=== PATIENT | female | born 1960 | race Caucasian/White ===

== ENCOUNTER → 2016-11-30 | Outpatient (CLI) | payer MEDICARE, BC ==
--- NOTE | 2016-11-30 11:41 | REPMRS ---
Patient History The patient states she has not had a clinical breast exam in over a year. Patient is postmenopausal. Family history of prostate cancer in father at age 50 or over and breast cancer in maternal aunt. Digital Woman Screen Mammo: November 30, 2016 - Exam #: [id number] Bilateral CC and MLO view(s) were taken. Technologist: Sandi Kim, Technologist Prior study comparison: April 17, 2013, digital woman screen mammo performed at [facility] to [facility]. December 12, 2004, bilateral screening mammogram performed at [facility]. FINDINGS: There are scattered fibroglandular densities. There has been no change in the appearance of the mammogram from the prior studies. There is a mild amount of residual fibroglandular tissue which is fairly symmetric. There is no interval development of dominant mass, architectural distortion, or clustered microcalcification suggestive of malignancy. ASSESSMENT: BI-RADS/ACR category 1 mammogram. Negative. Recommendation Routine screening mammogram in 1 year (for women over age 40). This mammogram was interpreted with the aid of an FDA-approved computer-aided dectection system. Electronically Signed By: Michael Bauman MD 11/30/16 2728
== END ==
LOC: M WHC 08:10
PROVIDERS: ATTEND Family Medicine
DX: Z12.31 Encounter for screening mammogram for malignant neoplasm of breast (principal)

== ENCOUNTER → 2016-12-27 | Outpatient (REF) | payer MEDICARE, OTHER | LOC: M SFHCWAGY 13:53 | PROVIDERS: ATTEND Nurse Practitioner Family | DX: Z12.72 Encounter for screening for malignant neoplasm of vagina (principal); N95.2 Postmenopausal atrophic vaginitis; Z12.12 Encounter for screening for malignant neoplasm of rectum | CPT/HCPCS: 82270; G0101; G0123 ==

== ENCOUNTER → 2017-12-03 | Outpatient (REF) | payer MEDICARE, OTHER ==
[2017-12-03 16:42] LABS: RHEUMATOID FACTOR QUANT < 10.0 IU/ML (<15.0)
[2017-12-03 16:42] LABS: C REACTIVE PROTEIN QUANTITATIV < 0.30 MG/DL (0.00-0.30)
[2017-12-03 17:14] LABS: BASO % 0.5 % (0.0-1.0); EOS # 0.1 10^3/uL (0.0-0.50); EOS % 1.1 % (0.0-3.0); HEMATOCRIT 42.8 % (36.0-47.0); HEMOGLOBIN 14.2 g/dl (12.0-15.5); IMMATURE GRANULOCYTE % 0.4 % (0-3.0); LYMPH # 2.4 10^3/uL (1.5-4.5); LYMPH % 31.5 % (24.0-44.0); MEAN CORPUSCULAR HEMOGLOBIN 29.7 pg (27.0-33.0); MEAN CORPUSCULAR HGB CONC 33.2 g/dl (32.0-36.5); MEAN CORPUSCULAR VOLUME 89.5 fl (80.0-96.0); MONO # 0.6 10^3/uL (0.0-0.8); MONO % 7.8 % (0.0-5.0); NEUTROPHILS # 4.4 10^3/uL (1.8-7.7); NEUTROPHILS % 58.7 % (36.0-66.0); PLATELET COUNT, AUTOMATED 338 10^3/uL (150-450); RED BLOOD COUNT 4.78 10^6/uL (4.00-5.40); RED CELL DISTRIBUTION WIDTH 12.9 % (11.5-14.5); WHITE BLOOD COUNT 7.5 10^3/uL (4.0-10.0)
[2017-12-03 17:49] LABS: ERYTHROCYTE SEDIMENTATION RATE 5 mm/hr (0-30)
[2017-12-06 00:07] LABS: ANTINUCLEAR ANTIBODIES DIRECT Negative (Negative); Lyme Disease IgG/IgM Antibodie <0.91 ISR (0.00-0.90); Lyme Disease IgM Ab Quantitati <0.80 index (0.00-0.79)
== END ==
LOC: M LABDRAW1 16:19
DX: M25.561 Pain in right knee (principal)
CPT/HCPCS: 86140

== ENCOUNTER → 2018-02-06 | Outpatient (CLI) | payer MEDICARE, BC, OTHER ==
[2018-02-06 13:21] LABS: ANION GAP 7 MEQ/L (8-16); BLOOD UREA NITROGEN 22 MG/DL (7-18); CALCIUM LEVEL 10.1 MG/DL (8.5-10.1); CARBON DIOXIDE LEVEL 32 MEQ/L (21-32); CHLORIDE LEVEL 103 MEQ/L (98-107); CREATININE FOR GFR 1.16 MG/DL (0.55-1.30); GLOMERULAR FILTRATION RATE 51.3 (>51); GLUCOSE, FASTING 110 MG/DL (70-100); POTASSIUM SERUM 4.4 MEQ/L (3.5-5.1); SODIUM LEVEL 142 MEQ/L (136-145)
== END ==
LOC: M LAB 11:15
DX: M17.11 Unilateral primary osteoarthritis, right knee (principal)
CPT/HCPCS: 93005

== ENCOUNTER → 2018-12-08 | Outpatient (CLI) | payer MEDICARE, BC, OTHER ==
--- NOTE | 2018-12-08 11:44 | REPMRS ---
Patient History The patient states she had a clinical breast exam in 10/2018. Family history of breast cancer in maternal aunt, prostate cancer at age 50 or over in father. Digital Woman Screen Mammo: December 08, 2018 - Exam #: [id number] Bilateral CC and MLO view(s) were taken. Technologist: Sandi Kim, Technologist Prior study comparison: November 30, 2016, digital woman screen mammo performed at [facility]. April 17, 2013, digital woman screen mammo performed at [facility]. December 12, 2004, bilateral screening mammogram performed at [facility]. FINDINGS: The breast tissue is almost entirely fat. There has been no change in the appearance of the mammogram from the prior studies. There is no interval development of dominant mass, architectural distortion, or clustered microcalcification typical of malignancy. 3-D tomosynthesis shows no additional findings. Assessment: BI-RADS/ACR category 1 mammogram. Negative Mammogram. Recommendation Routine screening mammogram of both breasts in 1 year (for women over age 40). This patient's Lifetime Breast Cancer RIsk is estimated at 6.1 %. This mammogram was interpreted with the aid of an FDA-approved computer-aided dectection system. Electronically Signed By: Jame Hamm MD 12/08/18 [id number]
== END ==
LOC: M WHC 09:52
PROVIDERS: ATTEND Obstetrics & Gynecology
DX: Z12.31 Encounter for screening mammogram for malignant neoplasm of breast (principal); Z80.3 Family history of malignant neoplasm of breast

== ENCOUNTER → 2019-04-07 | Outpatient (CLI) | payer MEDICARE, BC, OTHER ==
--- NOTE | 2019-04-07 10:21 | REP ---
STANDING AP BILATERAL KNEES: Standing AP view of bilateral knees performed. No fracture or dislocation is seen. No significant arthritic changes are seen bilaterally. Joint spaces appear well preserved. IMPRESSION: Negative exam. Electronically Signed by Michael Bauman MD 04/07/2019 10:32 A
== END ==
LOC: M RAD 09:26
PROVIDERS: ATTEND Internal Medicine Rheumatology
DX: M17.0 Bilateral primary osteoarthritis of knee (principal)
CPT/HCPCS: 73565; G0463

== ENCOUNTER → 2019-09-10 | Outpatient (REF) | payer MEDICARE, OTHER | LOC: M LAB REF 10:22 | PROVIDERS: ATTEND Internal Medicine Gastroenterology | DX: R19.7 Diarrhea, unspecified (principal) ==

== ENCOUNTER → 2019-09-11 | Outpatient (CLI) | payer MEDICARE, BC, OTHER ==
[~2019-09-11] MED LIST: ASPI81TA26 PO; ATOR1TAB19 PO; BUSP30TA PO; CHLO50TA PO; ESCI10TA2 PO; METO1TAB33 PO; ROPI1TAB3 PO
[2019-09-11 10:30] LABS: CALCIUM LEVEL 9.2 MG/DL (8.5-10.1); CHOLESTEROL RISK RATIO 2.836 (<5); CREATININE FOR GFR 1.15 MG/DL (0.55-1.30); GLOMERULAR FILTRATION RATE 51.4 (>51); POTASSIUM SERUM 3.7 MEQ/L (3.5-5.1)
== END ==
LOC: M LAB 09:21
PROVIDERS: ATTEND Obstetrics & Gynecology
DX: E78.5 Hyperlipidemia, unspecified (principal); I10 Essential (primary) hypertension

== ENCOUNTER → 2019-10-27 | Outpatient (CLI) | payer MEDICARE, BC, OTHER ==
[~2019-10-27] MED LIST changes: +LIDOCAINE 2% 100MG/5ML SDV (FOR ANES.) As Ordered ONE; +ePHEDrine SULFATE 25 MG/5 ML(5MG/ML) SYRINGE As Ordered ONE; +propofoL 200 MG/20 ML VIAL As Ordered ONE
== END ==
LOC: M LABSMTC 11:48
PROVIDERS: ATTEND Anesthesiology
DX: Z01.818 Encounter for other preprocedural examination (principal); Z11.59 Encounter for screening for other viral diseases; Z20.828 Contact with and (suspected) exposure to other viral communicable diseases

== ENCOUNTER 2019-10-28 12:46 | Day surgery (SDC) | payer MEDICARE, BC, OTHER ==
[~2019-10-28] VITALS: Ht 165.1 cm; Wt 92.1 kg
[~2019-10-28 12:46] MED LIST changes: -LIDOCAINE 2% 100MG/5ML SDV (FOR ANES.) As Ordered ONE; +NS 1,000 ML IV ONE; -ePHEDrine SULFATE 25 MG/5 ML(5MG/ML) SYRINGE As Ordered ONE; -propofoL 200 MG/20 ML VIAL As Ordered ONE
[2019-10-28] MEDS ORDERED: propofoL 200 MG/20 ML VIAL ONE (14:22)
[2019-10-28] MEDS ORDERED: LIDOCAINE 2% 100MG/5ML SDV (FOR ANES.) ONE (14:22)
[2019-10-28] MEDS ORDERED: ePHEDrine SULFATE 25 MG/5 ML(5MG/ML) SYRINGE ONE (14:22)
--- NOTE | 2019-10-28 14:45 | ROOR ---
Patient Name: Nava Gill Procedure Date: 10/28/2019 2:10 PM Date of : 1960 Age: 59 Room: [facility] Gender: Female Note Status: Finalized Procedure: Total Colonoscopy to Cecum + Cold Snare Polypectomy + Hemoclips + Biopsies Indications: Change in bowel habits Providers: Steve Catherine MD Referring MD: Maria Eugenia Ramsay Do Requesting Provider: Medicines: Monitored Anesthesia Care Complications: No immediate complications. Procedure: Pre-Anesthesia Assessment: - The heart rate, respiratory rate, oxygen saturations, blood pressure, adequacy of pulmonary ventilation, and response to care were monitored throughout the procedure. The Colonoscope was introduced through the anus and advanced to the cecum, identified by appendiceal orifice and ileocecal valve. The colonoscopy was performed without difficulty. The patient tolerated the procedure well. The quality of the bowel preparation was excellent. Findings: The perianal and digital rectal examinations were normal. Non-bleeding internal hemorrhoids were found during retroflexion. The hemorrhoids were small and Grade I (internal hemorrhoids that do not prolapse). Two sessile polyps were found in the entire colon. The polyps were medium in size. These polyps were removed with a cold snare. Resection and retrieval were complete. To prevent bleeding after the polypectomy, one hemostatic clip was successfully placed (MR conditional). There was no bleeding at the end of the procedure. Biopsies for histology were taken with a cold forceps from the ascending colon, transverse colon and descending colon for evaluation of microscopic colitis. The exam was otherwise without abnormality on direct and retroflexion views. Impression: - Non-bleeding internal hemorrhoids. - Two medium polyps in the entire colon, removed with a cold snare. Resected and retrieved. Clip (MR conditional) was placed. - The examination was otherwise normal on direct and retroflexion views. - Biopsies were taken with a cold forceps from the ascending colon, transverse colon and descending colon for evaluation of microscopic colitis. - The exam was otherwise normal to the cecum. Recommendation: - Patient has a contact number available for emergencies. The signs and symptoms of potential delayed complications were discussed with the patient. Return to normal activities tomorrow. Written discharge instructions were provided to the patient. - High fiber diet. - Discharge patient to home. - Continue present medications. - Await pathology results. - Telephone GI clinic for pathology results in 1 week. - Repeat colonoscopy for surveillance based on pathology results. - Return to referring physician. - The findings and recommendations were discussed with the patient's family. Steve Catherine MD Steve Catherine MD 10/28/2019 2:45:18 PM Electronically signed by Steve Catherine MD Number of Addenda: 0 Note Initiated On: 10/28/2019 2:10 PM Estimated Blood Loss: Estimated blood loss: none.
[2019-10-28 15:15] VITALS: BP 158/75
== END 2019-10-28 15:18 | disposition home or self-care (01) ==
LOC: M OPP 12:46
PROVIDERS: ATTEND Internal Medicine Gastroenterology
DX: K64.0 First degree hemorrhoids (principal); K63.5 Polyp of colon; R19.4 Change in bowel habit; I10 Essential (primary) hypertension; Z79.82 Long term (current) use of aspirin; Z79.899 Other long term (current) drug therapy

== ENCOUNTER → 2019-11-16 | Outpatient (CLI) | payer MEDICARE, BC, OTHER ==
[~2019-11-16] MED LIST changes: -NS 1,000 ML IV ONE
--- NOTE | 2019-11-16 16:51 | REP ---
BILATERAL SHOULDERS: Three views of bilateral shoulders performed. No acute fracture or dislocation is seen. There is mild joint space narrowing, subchondral sclerosis, and spurring at the left glenohumeral joint. There is mild to moderate narrowing at the left acromioclavicular joint. There is mild spurring of the right glenoid. There is moderate narrowing of the right acromioclavicular joint. There are no other significant findings. IMPRESSION: Bilateral arthritic changes, as discussed above. Electronically Signed by Michael Bauman MD 11/16/2019 07:35 P
== END ==
LOC: M RAD 14:31
PROVIDERS: ATTEND Obstetrics & Gynecology
DX: M19.011 Primary osteoarthritis, right shoulder (principal); M19.012 Primary osteoarthritis, left shoulder

== ENCOUNTER → 2020-02-19 | Outpatient (CLI) | payer MEDICARE, BC ==
--- NOTE | 2020-02-20 15:02 | REPMRS ---
Patient History The patient states she has not had a clinical breast exam in over a year. Family history of breast cancer in maternal aunt, prostate cancer at age 50 or over in father. Digital Woman Screen Mammo: February 19, 2020 - Exam #: [id number] Bilateral CC and MLO view(s) were taken. Technologist: Valery Navas, Technologist Prior study comparison: December 08, 2018, bilateral digital woman screen mammo performed at [facility]. November 30, 2016, digital woman screen mammo performed at [facility]. April 17, 2013, digital woman screen mammo performed at [facility]. FINDINGS: The breast tissue is almost entirely fat. The Volpara volumetric breast density category is: A. There has been no change in the appearance of the mammogram from the prior studies. There is no interval development of dominant mass, architectural distortion, or grouped microcalcification typical of malignancy. 3-D tomosynthesis shows no additional findings. Assessment: BI-RADS/ACR category 1 mammogram. Negative Mammogram. Recommendation Routine screening mammogram of both breasts in 1 year (for women over age 40). This patient's Lifetime Breast Cancer RIsk is estimated at 5.9 %. This mammogram was interpreted with the aid of an FDA-approved computer-aided dectection system. Electronically Signed By: Jame Hamm MD 02/20/20 [id number]
== END ==
LOC: M WHC 14:20
PROVIDERS: ATTEND Family Medicine
DX: Z12.31 Encounter for screening mammogram for malignant neoplasm of breast (principal)

== ENCOUNTER → 2020-05-25 | Outpatient (REF) | payer MEDICARE, OTHER ==
[2020-05-25 14:16] LABS: CALCIUM LEVEL 10.1 MG/DL (8.8-10.2); CHOLESTEROL RISK RATIO 3.265 (<5); CREATININE FOR GFR 1.3 MG/DL (0.55-1.30); GLOMERULAR FILTRATION RATE 44.5 (>45); POTASSIUM SERUM 3.7 MEQ/L (3.5-5.1)
== END ==
LOC: M SFHCPLAZ 10:28
PROVIDERS: ATTEND Family Medicine
DX: E78.5 Hyperlipidemia, unspecified (principal); I10 Essential (primary) hypertension
CPT/HCPCS: 36415; 80048; 80061; G0463

== ENCOUNTER → 2020-05-30 | Outpatient (REF) | payer MEDICARE, OTHER ==
[2020-05-30 14:08] LABS: CALCIUM LEVEL 9.4 MG/DL (8.8-10.2); CHOLESTEROL RISK RATIO 3.212 (<5); CREATININE FOR GFR 1.29 MG/DL (0.55-1.30); GLOMERULAR FILTRATION RATE 44.9 (>45); POTASSIUM SERUM 3.3 MEQ/L (3.5-5.1)
[2020-05-30 14:30] LABS: APPEARANCE, URINE CLOUDY (CLEAR); BACTERIA, URINE AUTO 1+ (NEGATIVE); BILIRUBIN, URINE AUTO NEGATIVE (NEGATIVE); BLOOD, URINE BLOOD NEGATIVE (NEGATIVE); COLOR, URINE YELLOW (YELLOW); GLUCOSE, URINE (UA) AUTO NEGATIVE (NEGATIVE); KETONE, URINE AUTO NEGATIVE (NEGATIVE); LEUKOCYTE ESTERASE, URINE AUTO 2+ (NEGATIVE); MUCUS, URINE SMALL (NEGATIVE); NITRITE, URINE AUTO NEGATIVE (NEGATIVE); PROTEIN, URINE AUTO 1+ mg/dL (NEGATIVE); RBC, URINE AUTO 3 /HPF (0-3); SPECIFIC GRAVITY URINE AUTO 1.028 (1.002-1.035); SQUAMOUS EPITHELIAL CELL UR AU 18 /HPF (0-6); UROBILINOGEN, URINE AUTO 0.2 mg/dL (0.0-2.0); WBC, URINE AUTO 23 /HPF (0-3)
== END ==
LOC: M SFHCPLAZ 09:39
PROVIDERS: ATTEND Family Medicine
DX: E78.5 Hyperlipidemia, unspecified (principal); I10 Essential (primary) hypertension; R89.9 Unspecified abnormal finding in specimens from other organs, systems and tissues

== ENCOUNTER → 2020-06-14 | Outpatient (CLI) | payer MEDICARE, OTHER ==
[2020-06-14 14:13] LABS: CREATININE FOR GFR 1.18 MG/DL (0.55-1.30); GLOMERULAR FILTRATION RATE 49.7 (>45); POTASSIUM SERUM 3.4 MEQ/L (3.5-5.1)
== END ==
LOC: M PLALAB 09:10
PROVIDERS: ATTEND Student in an Organized Health Care Education/Training Program
DX: R89.9 Unspecified abnormal finding in specimens from other organs, systems and tissues (principal)

== ENCOUNTER → 2020-07-05 | Outpatient (REF) | payer MEDICARE, OTHER ==
[2020-07-05 13:56] LABS: CALCIUM LEVEL 9.9 MG/DL (8.8-10.2); CREATININE FOR GFR 1.18 MG/DL (0.55-1.30); GLOMERULAR FILTRATION RATE 49.7 (>45); POTASSIUM SERUM 4.4 MEQ/L (3.5-5.1)
== END ==
LOC: M PLALAB 10:15
PROVIDERS: ATTEND Student in an Organized Health Care Education/Training Program
DX: I10 Essential (primary) hypertension (principal)

== ENCOUNTER → 2020-11-21 | Outpatient (REF) | payer MEDICARE, OTHER ==
[~2020-11-21] MED LIST changes: +ESCI10TA16 PO; -ESCI10TA2 PO
== END ==
LOC: M SFHCPLAZ 15:14
PROVIDERS: ATTEND Family Medicine
DX: E78.5 Hyperlipidemia, unspecified (principal); I10 Essential (primary) hypertension

== ENCOUNTER → 2020-12-05 | Outpatient (REF) | payer MEDICARE, OTHER ==
[2020-12-05 14:18] LABS: ALBUMIN 4.2 GM/DL (3.2-5.2); BILIRUBIN,TOTAL 0.6 MG/DL (0.2-1.0); CALCIUM LEVEL 10.1 MG/DL (8.8-10.2); CHOLESTEROL RISK RATIO 3.093 (<5); CREATININE FOR GFR 1.3 MG/DL (0.55-1.30); GLOMERULAR FILTRATION RATE 44.5 (>45); POTASSIUM SERUM 4.5 MEQ/L (3.5-5.1)
== END ==
LOC: M SFHCPLAZ 10:10
PROVIDERS: ATTEND Family Medicine
DX: I10 Essential (primary) hypertension (principal); E78.5 Hyperlipidemia, unspecified

== ENCOUNTER → 2020-12-29 | Outpatient (REF) | payer MEDICARE, OTHER | LOC: M LAB REF 13:23 | PROVIDERS: ATTEND Student in an Organized Health Care Education/Training Program | DX: D36.17 Benign neoplasm of peripheral nerves and autonomic nervous system of trunk, unspecified (principal) | CPT/HCPCS: 88305; G0463 ==

== ENCOUNTER → 2021-02-09 | Outpatient (CLI) | payer MEDICARE, BC, OTHER ==
--- NOTE | 2021-02-09 10:24 | REP ---
INDICATION: RENOVASCULAR HTN, CKD STAGE 3A/B. COMPARISON: None. TECHNIQUE: Real-time sonographic evaluation of the kidneys with real-time arterial Doppler due to renovascular disease FINDINGS: Multiple ultrasonographic images of the right kidney show the right kidney to measure 10.4 x 5.4 x 3.9 cm. The renal cortical echotexture is unremarkable. There are no masses. There is good corticomedullary differentiation. There is no hydronephrosis. There are no perinephric fluid collections. Multiple ultrasonographic images of the left kidney show the left kidney to measure 10.9 x 5.4 x 4.6 cm. The renal cortical echotexture is unremarkable. There are no masses. There is good corticomedullary differentiation. There is no hydronephrosis. There are no perinephric fluid collections. Incidental note is made of the 1.2 x 0.9 x 1 cm sized anechoic structure in the superior pole region which exhibits posterior wall enhancement and increased through transmission consistent with a simple cyst. On the right: The peak renal artery velocity is 178 centimeters/second. The peak aortic velocity is 122 centimeters/second. The renal aortic ratio is 1.46. The resistive index in the upper pole is 0.69, midpole 0.72, and lower pole 0.68. The acceleration time in the upper pole is 0.042, midpole 0.03, lower pole 0.028. On the left: The peak renal artery velocity is 119 centimeters/second. Peak aortic velocity is 122 centimeters/second. The renal aortic ratio is 0.98. The resistive index is 0.69 in the upper pole, 0.74 in the midpole, and 0.64 in the lower pole. The acceleration time in the upper pole is 0.036, in the midpole is 0.040, and in the lower pole 0.036. IMPRESSION: 1. Real-time sonographic evaluation of the kidneys shows them to be within normal limits. There is a simple cyst in the left kidney as described above. 2. There is no evidence of renal arterial stenosis. Findings as described above. Consider complete evaluation with renal arterial MRA. <Electronically signed by Juan Davis > 02/09/21 [id number]
== END ==
LOC: M RAD 08:06
PROVIDERS: ATTEND Internal Medicine Nephrology
DX: I15.0 Renovascular hypertension (principal); N18.31 Chronic kidney disease, stage 3a; N28.1 Cyst of kidney, acquired

== ENCOUNTER → 2021-08-01 | Outpatient (REF) | payer MEDICARE, OTHER | LOC: M SFHCPLAZ 14:19 | PROVIDERS: ATTEND Family Medicine | DX: E78.5 Hyperlipidemia, unspecified (principal); I10 Essential (primary) hypertension; E66.9 Obesity, unspecified ==

== ENCOUNTER → 2021-08-02 | Outpatient (CLI) | payer MEDICARE, BC, OTHER ==
[2021-08-02 11:47] LABS: CALCIUM LEVEL 9.4 MG/DL (8.8-10.2); CHOLESTEROL RISK RATIO 2.976 (<5); CREATININE FOR GFR 1.14 MG/DL (0.55-1.30); GLOMERULAR FILTRATION RATE 51.6 (>45); POTASSIUM SERUM 4.7 MEQ/L (3.5-5.1)
[2021-08-02 11:48] LABS: HEMOGLOBIN A1c 6.3 %
== END ==
LOC: M PLALAB 09:07
PROVIDERS: ATTEND Student in an Organized Health Care Education/Training Program
DX: I10 Essential (primary) hypertension (principal); E78.5 Hyperlipidemia, unspecified; E66.9 Obesity, unspecified; Z79.899 Other long term (current) drug therapy

== ENCOUNTER → 2021-11-03 | Outpatient (REF) | payer MEDICARE, OTHER | LOC: M SFHCPLAZ 14:45 | PROVIDERS: ATTEND Family Medicine | DX: Z53.21 Procedure and treatment not carried out due to patient leaving prior to being seen by health care provider (principal) ==

== ENCOUNTER → 2021-11-13 | Outpatient (CLI) | payer MEDICARE, OTHER ==
[2021-11-13 14:20] LABS: CALCIUM LEVEL 10.5 MG/DL (8.8-10.2); CREATININE FOR GFR 1.19 MG/DL (0.55-1.30); GLOMERULAR FILTRATION RATE 49.1 (>45)
== END ==
LOC: M PLALAB 09:52
PROVIDERS: ATTEND Student in an Organized Health Care Education/Training Program
DX: I10 Essential (primary) hypertension (principal)

== ENCOUNTER → 2022-02-20 | Outpatient (CLI) | payer MEDICARE, BC, OTHER | LOC: M WHC 09:26 | PROVIDERS: ATTEND Student in an Organized Health Care Education/Training Program | DX: Z12.31 Encounter for screening mammogram for malignant neoplasm of breast (principal) ==

== ENCOUNTER → 2022-09-03 | Outpatient (REF) | payer MEDICARE, OTHER | LOC: M SFHCPLAZ 13:50 | PROVIDERS: ATTEND Family Medicine | DX: G25.81 Restless legs syndrome (principal); I10 Essential (primary) hypertension; R73.03 Prediabetes ==

== ENCOUNTER → 2022-09-06 | Outpatient (CLI) | payer MEDICARE, BC, OTHER ==
[2022-09-06 10:53] LABS: BASO % 0.4 % (0.0-1.0); EOS # 0.2 10^3/uL (0.0-0.5); EOS % 2.1 % (0.0-3.0); HEMATOCRIT 47.7 % (36.0-47.0); HEMOGLOBIN 14.7 g/dl (12.0-15.5); LYMPH # 1.8 10^3/uL (1.5-5.0); LYMPH % 20.1 % (24.0-44.0); MEAN CORPUSCULAR HEMOGLOBIN 28.5 pg (27.0-33.0); MEAN CORPUSCULAR HGB CONC 30.8 g/dl (32.0-36.5); MEAN CORPUSCULAR VOLUME 92.4 fl (80.0-96.0); MONO # 0.6 10^3/uL (0.0-0.8); MONO % 6.6 % (2.0-8.0); NEUTROPHILS # 6.4 10^3/uL (1.5-8.5); NEUTROPHILS % 70.5 % (36.0-66.0); PLATELET COUNT, AUTOMATED 317 10^3/uL (150-450); RED BLOOD COUNT 5.16 10^6/uL (4.00-5.40); WHITE BLOOD COUNT 9.1 10^3/uL (4.0-10.0)
[2022-09-06 11:11] LABS: TOTAL IRON BINDING CAPACITY 347 UG/DL (250-425)
[2022-09-06 11:12] LABS: ALKALINE PHOSPHATASE 71 U/L (46-116); ALT/SGPT 41 U/L (7.0-40); AST/SGOT 28 U/L (<34); BILIRUBIN,TOTAL 0.9 MG/DL (0.3-1.2); BLOOD UREA NITROGEN 18 MG/DL (9-23); CALCIUM LEVEL 9.8 MG/DL (8.3-10.6); CARBON DIOXIDE LEVEL 31 MMOL/L (20-31); CHLORIDE LEVEL 108 MMOL/L (98-107); CHOLESTEROL LEVEL 147 MG/DL (<200); CHOLESTEROL RISK RATIO 3.12 (<5); CREATININE FOR GFR 0.96 MG/DL (0.55-1.30); GLOMERULAR FILTRATION RATE > 60.0 (>45); GLUCOSE, FASTING 88 MG/DL (74-106); IRON (FE) 81 UG/DL (50-170); LDL CHOLESTEROL 51.6 MG/DL (<100); PERCENT SATURATION 23.3 % (13.2-45.0); POTASSIUM SERUM 5.1 MMOL/L (3.5-5.1); SODIUM LEVEL 144 MMOL/L (136-145); TOTAL PROTEIN 6.8 G/DL (5.7-8.2); TRIGLYCERIDES LEVEL 242 MG/DL (<150)
[2022-09-06 11:14] LABS: FERRITIN 94.3 NG/ML (7.3-270.7)
== END ==
LOC: M PLALAB 08:51
PROVIDERS: ATTEND Student in an Organized Health Care Education/Training Program
DX: G25.81 Restless legs syndrome (principal); R73.03 Prediabetes; I10 Essential (primary) hypertension

== ENCOUNTER → 2022-11-07 | Outpatient (CLI) | payer MEDICARE, BC, OTHER ==
[2022-11-07 10:51] LABS: BLOOD UREA NITROGEN 20 MG/DL (9-23); CALCIUM LEVEL 9.7 MG/DL (8.3-10.6); CARBON DIOXIDE LEVEL 31 MMOL/L (20-31); CHLORIDE LEVEL 106 MMOL/L (98-107); CREATININE FOR GFR 0.99 MG/DL (0.55-1.30); GLOMERULAR FILTRATION RATE > 60.0 (>45); GLUCOSE, FASTING 97 MG/DL (74-106); IRON (FE) 46 UG/DL (50-170); POTASSIUM SERUM 4.5 MMOL/L (3.5-5.1); SODIUM LEVEL 144 MMOL/L (136-145)
== END ==
LOC: M PLALAB 08:15
PROVIDERS: ATTEND Student in an Organized Health Care Education/Training Program
DX: G25.81 Restless legs syndrome (principal); I10 Essential (primary) hypertension

== ENCOUNTER → 2022-11-12 | Outpatient (CLI) | payer MEDICARE, BC, OTHER ==
[2022-11-12 11:38] LABS: PERCENT SATURATION 11.2 % (13.2-45.0)
[2022-11-12 11:41] LABS: FERRITIN 72.2 NG/ML (7.3-270.7)
== END ==
LOC: M PLALAB 07:50
PROVIDERS: ATTEND Student in an Organized Health Care Education/Training Program
DX: E61.1 Iron deficiency (principal)

== ENCOUNTER → 2022-11-15 | Outpatient (CLI) | payer MEDICARE, BC, OTHER | LOC: M PLARAD 12:24 | PROVIDERS: ATTEND Student in an Organized Health Care Education/Training Program | DX: S84.12XD Injury of peroneal nerve at lower leg level, left leg, subsequent encounter (principal); M99.73 Connective tissue and disc stenosis of intervertebral foramina of lumbar region ==

== ENCOUNTER → 2022-12-24 | Outpatient (CLI) | payer MEDICARE, BC, OTHER ==
[2022-12-24 10:29] LABS: THYROID STIMULATING HORMONE 1.669 uIU/ML (0.55-4.78)
[2022-12-24 10:30] LABS: FREE T4 0.82 NG/DL (0.89-1.76)
== END ==
LOC: M LAB 08:35
PROVIDERS: ATTEND Student in an Organized Health Care Education/Training Program
DX: R00.0 Tachycardia, unspecified (principal)

== ENCOUNTER → 2023-01-02 | Outpatient (CLI) | payer MEDICARE, BC, OTHER | LOC: M RAD 10:59 | PROVIDERS: ATTEND Student in an Organized Health Care Education/Training Program | DX: R22.9 Localized swelling, mass and lump, unspecified (principal) ==

== ENCOUNTER → 2023-02-06 | Outpatient (CLI) | payer MEDICARE, BC, OTHER ==
[~2023-02-06] MED LIST changes: -ROPI1TAB3 PO; +ROPI1TAB73 PO
[2023-02-06 13:59] LABS: BLOOD UREA NITROGEN 18 MG/DL (9-23); CARBON DIOXIDE LEVEL 31 MMOL/L (20-31); CHLORIDE LEVEL 104 MMOL/L (98-107); CREATININE FOR GFR 0.86 MG/DL (0.55-1.30); GLOMERULAR FILTRATION RATE > 60.0 (>45); GLUCOSE, FASTING 98 MG/DL (74-106); POTASSIUM SERUM 4.4 MMOL/L (3.5-5.1); SODIUM LEVEL 143 MMOL/L (136-145)
== END ==
LOC: M PLALAB 09:50
PROVIDERS: ATTEND Student in an Organized Health Care Education/Training Program
DX: I10 Essential (primary) hypertension (principal)

== ENCOUNTER → 2023-02-13 | Outpatient (CLI) | payer MEDICARE, BC, OTHER | LOC: M RAD 12:24 | PROVIDERS: ATTEND Student in an Organized Health Care Education/Training Program | DX: I10 Essential (primary) hypertension (principal) ==

== ENCOUNTER → 2023-04-11 | Outpatient (CLI) | payer MEDICARE, BC, OTHER | LOC: M SLEEP 20:00 | PROVIDERS: ATTEND Nurse Practitioner Family | DX: G47.33 Obstructive sleep apnea (adult) (pediatric) (principal) ==

== ENCOUNTER → 2024-03-06 | Outpatient (REF) | payer MEDICARE, BC | LOC: M SFHCPLAZ 18:51 | PROVIDERS: ATTEND Family Medicine | DX: Z00.00 Encounter for general adult medical examination without abnormal findings (principal) ==

== ENCOUNTER → 2024-03-17 | Outpatient (CLI) | payer MEDICARE, BC ==
[2024-03-17 10:12] LABS: THYROID STIMULATING HORMONE 2.124 uIU/ML (0.55-4.78)
[2024-03-17 10:13] LABS: ALBUMIN 4.3 G/DL (3.2-5.2); BASO % 0.3 % (0.0-1.0); BILIRUBIN,TOTAL 1.1 MG/DL (0.3-1.2); CALCIUM LEVEL 10.6 MG/DL (8.3-10.6); EOS # 0.2 10^3/uL (0.0-0.5); EOS % 1.9 % (0.0-3.0); GLOMERULAR FILTRATION RATE 59.6 (>45); HEMATOCRIT 46.3 % (36.0-47.0); HEMOGLOBIN 15.1 g/dl (12.0-15.5); LYMPH % 21.4 % (24.0-44.0); MEAN CORPUSCULAR HEMOGLOBIN 30.5 pg (27.0-33.0); MEAN CORPUSCULAR HGB CONC 32.6 g/dl (32.0-36.5); MEAN CORPUSCULAR VOLUME 93.5 fl (80.0-96.0); MONO # 0.7 10^3/uL (0.0-0.8); MONO % 7.7 % (2.0-8.0); NEUTROPHILS # 6.2 10^3/uL (1.5-8.5); NEUTROPHILS % 68.5 % (36.0-66.0); PLATELET COUNT, AUTOMATED 316 10^3/uL (150-450); POTASSIUM SERUM 4.4 MMOL/L (3.5-5.1); RED BLOOD COUNT 4.95 10^6/uL (4.00-5.40); TOTAL PROTEIN 7.2 G/DL (5.7-8.2); WHITE BLOOD COUNT 9.1 10^3/uL (4.0-10.0)
== END ==
LOC: M PLALAB 08:09
PROVIDERS: ATTEND Student in an Organized Health Care Education/Training Program
DX: Z00.00 Encounter for general adult medical examination without abnormal findings (principal); Z79.899 Other long term (current) drug therapy

== ENCOUNTER → 2024-04-09 | Outpatient (CLI) | payer MEDICARE, BC | LOC: M WHC 13:21 | PROVIDERS: ATTEND Student in an Organized Health Care Education/Training Program | DX: Z12.31 Encounter for screening mammogram for malignant neoplasm of breast (principal) ==

== ENCOUNTER 2024-06-03 11:48 | Day surgery (SDC) | payer MEDICARE, BC ==
[~2024-06-03] VITALS: Ht 165.1 cm; Wt 104.3 kg
[~2024-06-03 11:48] MED LIST changes: +AMLO1TAB24 PO; +IRON65TA2 PO; +LEXA1TAB PO; +LOSA100T46 PO; +OMEG10002 PO; +THERTAB52 PO; +VITA100093 PO
[2024-06-03] MEDS ORDERED: propofoL 200 MG/20 ML VIAL As Ordered ONE (12:23)
[2024-06-03] MEDS ORDERED: LIDOCAINE 2% 100MG/5ML SDV (FOR ANES.) As Ordered ONE (12:23)
[2024-06-03 13:24] VITALS: TEMP 98.9
[2024-06-03 13:45] VITALS: BP 158/80; O2SAT 94
== END 2024-06-03 13:54 | disposition home or self-care (01) ==
LOC: M OPP 11:48
PROVIDERS: ATTEND Internal Medicine Gastroenterology
DX: Z12.11 Encounter for screening for malignant neoplasm of colon (principal); K63.5 Polyp of colon; K57.30 Diverticulosis of large intestine without perforation or abscess without bleeding; K64.0 First degree hemorrhoids; Z86.0100 Personal history of colon polyps, unspecified; Z87.19 Personal history of other diseases of the digestive system; I10 Essential (primary) hypertension; E78.00 Pure hypercholesterolemia, unspecified; Z79.899 Other long term (current) drug therapy; Z79.82 Long term (current) use of aspirin; Z90.710 Acquired absence of both cervix and uterus

== ENCOUNTER 2024-07-09 13:28 | Observation (INO) | payer MEDICARE, BC ==
[~2024-07-09] VITALS: Ht 165.1 cm; Wt 100.2 kg
[2024-07-09 15:10] LABS: BASO % 0.2 % (0.0-1.0); EOS # 0.1 10^3/uL (0.0-0.5); EOS % 0.3 % (0.0-3.0); HEMATOCRIT 46.3 % (36.0-47.0); HEMOGLOBIN 15.2 g/dl (12.0-15.5); LYMPH # 0.8 10^3/uL (1.5-5.0); LYMPH % 4.2 % (24.0-44.0); MEAN CORPUSCULAR HEMOGLOBIN 29.9 pg (27.0-33.0); MEAN CORPUSCULAR HGB CONC 32.8 g/dl (32.0-36.5); MONO # 0.7 10^3/uL (0.0-0.8); NEUTROPHILS # 16.6 10^3/uL (1.5-8.5); NEUTROPHILS % 90.9 % (36.0-66.0); PLATELET COUNT, AUTOMATED 264 10^3/uL (150-450); RED BLOOD COUNT 5.09 10^6/uL (4.00-5.40); WHITE BLOOD COUNT 18.3 10^3/uL (4.0-10.0)
[2024-07-09] MEDS: MORPHINE 4 MG/ML 1ML VIAL IV PRN (16:47)
[2024-07-09] MEDS ORDERED: METO1TAB33 PO (18:12)
[2024-07-09] MEDS ORDERED: HOME MED LIST COMPLETE! XX SCH (18:15)
[2024-07-09] MEDS ORDERED: MOM 30ML SUSPENSION UDC PO PRN (18:25)
[2024-07-09] MEDS ORDERED: KETOROLAC 30 MG/ML 1ML VIAL IV PRN (18:25)
[2024-07-09] MEDS: ACETAMINOPHEN 500 MG TAB PO SCH (19:13)
[2024-07-09] MEDS: KETOROLAC 30 MG/ML 1ML VIAL IV SCH (19:15)
[2024-07-09] MEDS: IPRATROPIUM 0.5MG/ALBUTEROL 2.5MG INH SOL UD 3ML (DUONEB) NEB SCH (19:19)
[2024-07-09 19:52] LABS: ALKALINE PHOSPHATASE 58 U/L (35-104); ALT/SGPT 28 U/L (7.0-40); AST/SGOT 26 U/L (<34); BLOOD UREA NITROGEN 18 MG/DL (9-23); CALCIUM LEVEL 10.4 MG/DL (8.3-10.6); CARBON DIOXIDE LEVEL 30 MMOL/L (20-31); CHLORIDE LEVEL 105 MMOL/L (98-107); CREATININE FOR GFR 0.85 MG/DL (0.55-1.30); GLOMERULAR FILTRATION RATE > 60.0 (>45); GLUCOSE, FASTING 137 MG/DL (74-106); POTASSIUM SERUM 4.4 MMOL/L (3.5-5.1); SODIUM LEVEL 143 MMOL/L (136-145); TOTAL PROTEIN 7.1 G/DL (5.7-8.2)
[2024-07-09] MEDS: DOCUSATE SODIUM 100MG CAPSULE PO SCH (21:00)
[2024-07-09] MEDS: ASPIRIN 81MG ENTERIC TABLET PO SCH (21:22)
[2024-07-09] MEDS: DICLOFENAC EPOLAMINE 1.3% PATCH TOP SCH (21:28)
[2024-07-09 22:45] VITALS: BP 165/79; TEMP 98.8; O2SAT 95
[2024-07-09 22:50] VITALS: O2SAT 96
[2024-07-09 23:00] VITALS: O2SAT 98
[2024-07-10 04:00] VITALS: BP 143/73; TEMP 98.6; O2SAT 97
[2024-07-10] MEDS: oxyCODONE 5MG TAB PO PRN ×2 (04:02→09:51)
[2024-07-10] MEDS: HEPARIN SOD (PORCINE) 5000UNITS/ML 1ML VIAL/SYRINGE SC SCH (05:41)
[2024-07-10 05:46] LABS: HEMATOCRIT 41.4 % (36.0-47.0); HEMOGLOBIN 13.4 g/dl (12.0-15.5); MEAN CORPUSCULAR HEMOGLOBIN 29.3 pg (27.0-33.0); MEAN CORPUSCULAR HGB CONC 32.4 g/dl (32.0-36.5); MEAN CORPUSCULAR VOLUME 90.6 fl (80.0-96.0); PLATELET COUNT, AUTOMATED 233 10^3/uL (150-450); RED BLOOD COUNT 4.57 10^6/uL (4.00-5.40); WHITE BLOOD COUNT 9.8 10^3/uL (4.0-10.0)
[2024-07-10 06:11] LABS: BLOOD UREA NITROGEN 21 MG/DL (9-23); CALCIUM LEVEL 9.5 MG/DL (8.3-10.6); CARBON DIOXIDE LEVEL 29 MMOL/L (20-31); CHLORIDE LEVEL 107 MMOL/L (98-107); CREATININE FOR GFR 0.95 MG/DL (0.55-1.30); GLOMERULAR FILTRATION RATE > 60.0 (>45); GLUCOSE, FASTING 101 MG/DL (74-106); POTASSIUM SERUM 4.2 MMOL/L (3.5-5.1); SODIUM LEVEL 143 MMOL/L (136-145)
[2024-07-10] MEDS: FLUBLOK(EGGFREE) TRIVAL(24-25) VACCINE PF 0.5ML SYRINGE 18YRS & OLDER IM.IMMUN ONE (09:50)
[2024-07-10] MEDS: LIDOCAINE 5% (LIDODERM) PATCH TD SCH (09:51)
[2024-07-10] MEDS: ATORVASTATIN 10 MG TAB PO SCH (09:51)
[2024-07-10] MEDS ORDERED: ACET-683 PO (11:23)
[2024-07-10] MEDS ORDERED: DICL1PAT6 TOP (11:23)
[2024-07-10] MEDS ORDERED: LIDO5TD TD (11:23)
[2024-07-10] MEDS ORDERED: OXYC-517 PO (11:23)
[2024-07-10 11:54] VITALS: O2SAT 93
[2024-07-10 12:19] VITALS: BP 151/79; TEMP 98.8; O2SAT 93
[2024-07-11] MEDS ORDERED: VITAMIN D 1,000 INTERNATIONAL UNITS TABLET PO SCH (09:00)
[2024-07-11] MEDS ORDERED: FERROUS SULFATE 325MG TAB PO SCH (09:00)
== END 2024-07-10 15:30 | disposition home or self-care (01) ==
LOC: EDBD 13:28 → M ED 13:28 → M ED INP 13:29 → M MSPAV 22:45
PROVIDERS: ADMIT Student in an Organized Health Care Education/Training Program; ATTEND Student in an Organized Health Care Education/Training Program
DX: R55 Syncope and collapse (principal); S22.41XA Multiple fractures of ribs, right side, initial encounter for closed fracture; S27.0XXA Traumatic pneumothorax, initial encounter; T79.7XXA Traumatic subcutaneous emphysema, initial encounter; D72.829 Elevated white blood cell count, unspecified; W18.2XXA Fall in (into) shower or empty bathtub, initial encounter; Y92.002 Bathroom of unspecified non-institutional (private) residence as the place of occurrence of the external cause; Y93.01 Activity, walking, marching and hiking; Y99.9 Unspecified external cause status; K83.8 Other specified diseases of biliary tract; Z90.49 Acquired absence of other specified parts of digestive tract; Z90.79 Acquired absence of other genital organ(s); Z98.51 Tubal ligation status; I10 Essential (primary) hypertension; G47.33 Obstructive sleep apnea (adult) (pediatric); E78.5 Hyperlipidemia, unspecified; D50.9 Iron deficiency anemia, unspecified; M19.90 Unspecified osteoarthritis, unspecified site; E56.9 Vitamin deficiency, unspecified; Z79.899 Other long term (current) drug therapy; Z79.82 Long term (current) use of aspirin; Z23 Encounter for immunization
CPT/HCPCS: 36415; 70450; 71045; 71046; 71250; 80047; 80048; 80053; 85025; 85027; 90673; 93005; 93306; 94640; 96372; 96374; 96375; 96376; 97161; 99285; G0008; G0378; J1885

== ENCOUNTER → 2024-07-17 | Outpatient (CLI) | payer MEDICARE, BC ==
[~2024-07-17] MED LIST changes: +ACET-683 PO; +DICL1PAT6 TOP; +LIDO5TD TD; +OXYC-517 PO
== END ==
LOC: M PLAIMG 14:12 → M PLALAB 14:12
PROVIDERS: ATTEND Student in an Organized Health Care Education/Training Program
DX: J90 Pleural effusion, not elsewhere classified (principal); J98.11 Atelectasis; I51.7 Cardiomegaly; J81.1 Chronic pulmonary edema

== ENCOUNTER → 2024-10-29 | Outpatient (CLI) | payer MEDICARE, BC | LOC: M WHC 13:44 | PROVIDERS: ATTEND Nurse Practitioner Family | DX: N18.32 Chronic kidney disease, stage 3b (principal); N28.1 Cyst of kidney, acquired ==

== ENCOUNTER → 2025-04-15 | Outpatient (CLI) | payer MEDICARE, BC ==
[2025-04-15 15:01] LABS: BASO # 0.0 10^3/uL (0.0-0.2); BASO % 0.6 % (0.0-1.0); EOS # 0.1 10^3/uL (0.0-0.5); EOS % 1.5 % (0.0-3.0); LYMPH # 2.3 10^3/uL (1.5-5.0); LYMPH % 33.5 % (24.0-44.0); MONO # 0.7 10^3/uL (0.0-0.8); MONO % 9.8 % (2.0-8.0); NEUTROPHILS # 3.7 10^3/uL (1.5-8.5); NEUTROPHILS % 54.3 % (36.0-66.0); PLATELET COUNT, AUTOMATED 278 10^3/uL (150-450)
[2025-04-15 15:04] LABS: ESTIMATED AVERAGE GLUCOSE 103.0 MG/DL (60-110)
[2025-04-15 15:06] LABS: ALT/SGPT 28 U/L (7.0-40); AST/SGOT 21 U/L (<34); C REACTIVE PROTEIN QUANTITATIV < 0.50 MG/DL (<1.0); CALCIUM LEVEL 10.0 MG/DL (8.3-10.6); CARBON DIOXIDE LEVEL 31 MMOL/L (20-31); CHLORIDE LEVEL 103 MMOL/L (98-107); CHOLESTEROL LEVEL 147 MG/DL (<200); CHOLESTEROL RISK RATIO 2.50 (<5); CREATININE FOR GFR 1.07 MG/DL (0.55-1.30); ERYTHROCYTE SEDIMENTATION RATE 8 mm/hr (0-30); GLOMERULAR FILTRATION RATE 57.6 (>45); LDL CHOLESTEROL 63.1 MG/DL (<100); NON-HDL-C 88.3 MG/DL; POTASSIUM SERUM 4.3 MMOL/L (3.5-5.1); SODIUM LEVEL 144 MMOL/L (136-145); TRIGLYCERIDES LEVEL 126 MG/DL (<150)
[2025-04-15 15:07] LABS: FREE T4 1.09 NG/DL (0.89-1.76)
== END ==
LOC: M PLALAB 10:23
PROVIDERS: ATTEND Student in an Organized Health Care Education/Training Program
DX: Z00.00 Encounter for general adult medical examination without abnormal findings (principal); R63.4 Abnormal weight loss; Z13.220 Encounter for screening for lipoid disorders; Z13.1 Encounter for screening for diabetes mellitus; Z11.1 Encounter for screening for respiratory tuberculosis; Z79.899 Other long term (current) drug therapy

== ENCOUNTER → 2025-04-25 | Outpatient (CLI) | payer MEDICARE, BC | LOC: M RAD 08:57 | PROVIDERS: ATTEND Family Medicine | DX: R76.12 Nonspecific reaction to cell mediated immunity measurement of gamma interferon antigen response without active tuberculosis (principal) ==

== ENCOUNTER → 2025-04-27 | Outpatient (CLI) | payer MEDICARE, BC | LOC: M WHC 10:00 | PROVIDERS: ATTEND Student in an Organized Health Care Education/Training Program | DX: Z12.31 Encounter for screening mammogram for malignant neoplasm of breast (principal); S22.41XD Multiple fractures of ribs, right side, subsequent encounter for fracture with routine healing; X58.XXXD Exposure to other specified factors, subsequent encounter; Y92.9 Unspecified place or not applicable; Y93.9 Activity, unspecified; Y99.9 Unspecified external cause status; Z87.81 Personal history of (healed) traumatic fracture; R92.313 Mammographic fatty tissue density, bilateral breasts; Z78.0 Asymptomatic menopausal state ==

== ENCOUNTER → 2025-04-27 | Outpatient (CLI) | payer MEDICARE, BC | LOC: M PLAIMG 10:01 | PROVIDERS: ATTEND Student in an Organized Health Care Education/Training Program | DX: R63.4 Abnormal weight loss (principal); S22.41XA Multiple fractures of ribs, right side, initial encounter for closed fracture; X58.XXXA Exposure to other specified factors, initial encounter; Y92.9 Unspecified place or not applicable; Y93.9 Activity, unspecified; Y99.9 Unspecified external cause status; Z87.81 Personal history of (healed) traumatic fracture ==